=== PATIENT | female | born 1980 | race African-American/Black ===

== ENCOUNTER 2019-01-15 22:24 | Emergency (ER) | payer OTHER ==
[~2019-01-15] VITALS: Ht 165.1 cm; Wt 98.0 kg
[~2019-01-15 22:24] MED LIST: PNV1TABL25 PO
[2019-01-15 22:30] VITALS: BP 126/76
== END 2019-01-15 22:55 | disposition left against medical advice (07) ==
LOC: ER 22:24
DX: Z11.4 Encounter for screening for human immunodeficiency virus [HIV] (principal); Z53.21 Procedure and treatment not carried out due to patient leaving prior to being seen by health care provider